=== PATIENT | male | born 1930 | race Caucasian/White ===

== ENCOUNTER → 2017-10-09 | Outpatient (CLI) | payer OTHER ==
[~2017-10-09] MED LIST: ACCUNEB SO1.25 MG/1; ACETAMINOPHEN325 M1 PO; ACIPHEX 20 MG T20 MG PO; ACYCLOVIR 400400 MG; ADVAIR 500-501 EACH INH; ADVAIR HFA 230M12 GM INH; ADVAIRDISKUS INH; ASPIR 8181 MG PO; BETAMETHASONE D50 G3 TOP; CALCIUM 500 +1 EAC5 PO; CALCIUM PO; CENTRUM SILVER1 EAC2 PO; CLEOCIN HCL150 MG PO; CLOBETASOL TOP; COLACE100 MG PO; COREG3.125 MG PO; COZAAR 25 MG TA25 MG PO; DALIRESP500 MCG PO; DEMADEX10 MG PO; DESONIDE CR. 1515 G1 TOP; DESOXIMETASONE15 G1 TOP; DUONEB 2.5-0.5 M3 ML INH; FENTANYL PA25 MCG/HR TRANSDERM; FENTANYL PA50 MCG/HR TRANSDERM; FENTANYL PATCH75 MCG TRANSDERM; FLOMAX0.4 MG PO; FLUOCINONI0.05 %/30 TOP; FOLIC ACID1 MG PO; HYDROCODONE-AP1 EAC6 PO; HYTRIN10 MG PO; IRON325 PO; LIPITOR 20 MG T20 M1 PO; LUMIGAN2.5 M1 OP; MAGOX 400400 MG PO; METHOTREXATE 22.5 MG PO; METHOTREXATE PO; METOPROLOL SUCC25 M1 PO; MIRALAX255 GM PO; NEURONTIN 300300 M1 PO; NORCO 5-325 TA1 EACH PO; OXYCONTIN20 M1 PO; PENICILLIN V P500 MG PO; PERCOCET PO; POTASSIUM20 PO; PRILOSEC40 MG PO; PROTONIX40 M1 PO; SENOKOT-S1 TA2 PO; TOPICORT15 G1 TP; TRIAMCINOLONE A80 G2 TOP; TUMS PO; VITAMIN D1000 UNI1 PO; ZYRTEC10 M2 PO; [UNRECOGNIZED DRUG - REMARK]
== END ==
LOC: RAD 12:55
DX: R06.02 Shortness of breath (principal)

== ENCOUNTER → 2019-03-26 | Outpatient (CLI) | payer OTHER | LOC: ULTRA 08:43 | DX: I12.9 Hypertensive chronic kidney disease with stage 1 through stage 4 chronic kidney disease, or unspecified chronic kidney disease (principal); N28.1 Cyst of kidney, acquired ==

== ENCOUNTER → 2020-03-01 | Outpatient (CLI) | payer OTHER | LOC: RAD 09:27 | PROVIDERS: ATTEND Internal Medicine | DX: J44.9 Chronic obstructive pulmonary disease, unspecified (principal); J98.4 Other disorders of lung; M47.814 Spondylosis without myelopathy or radiculopathy, thoracic region ==

== ENCOUNTER → 2020-03-05 | Outpatient (CLI) | payer OTHER ==
[~2020-03-05] MED LIST changes: +PREDNISONE 10 M10 MG PO; +TYLENOL WITH CO1 TA1 PO
== END ==
LOC: SJCVCIMAG 09:54
PROVIDERS: ATTEND Internal Medicine Cardiovascular Disease
DX: R94.31 Abnormal electrocardiogram [ECG] [EKG] (principal); I08.8 Other rheumatic multiple valve diseases; I11.9 Hypertensive heart disease without heart failure; I45.2 Bifascicular block; I25.10 Atherosclerotic heart disease of native coronary artery without angina pectoris; I25.5 Ischemic cardiomyopathy; E78.00 Pure hypercholesterolemia, unspecified; J44.9 Chronic obstructive pulmonary disease, unspecified; Z95.1 Presence of aortocoronary bypass graft

== ENCOUNTER 2020-03-07 12:03 | Emergency (ER) | payer OTHER ==
[~2020-03-07] VITALS: Ht 180.3 cm; Wt 90.7 kg
[~2020-03-07 12:03] MED LIST changes: -PREDNISONE 10 M10 MG PO; -TYLENOL WITH CO1 TA1 PO
[2020-03-07 13:56] LABS: ABSOLUTE NEUTROPHILS 5.3 thou/uL (1.4-8.2); BASOPHILS 0.7 % (0.0-2.0); EOSINOPHILS 1.1 % (0.0-3.0); HEMOGLOBIN 12.1 gm/dL (14.0-18.0); LYMPHOCYTES 9.4 % (24.0-44.0); MCH 30.6 pg (26.0-34.0); MCHC 33.7 g/dL (28.0-37.0); MONOCYTES 11.4 % (1.0-8.0); PLATELET COUNT 176 thou/uL (150-400); POLYS 77.4 % (36.0-66.0); RBC 3.96 mil/uL (4.50-6.00); RDW 15.1 % (10.5-14.5); WBC 6.8 thou/uL (4.0-11.0)
[2020-03-07] MEDS ORDERED: PREDNISONE 10 M10 MG PO (14:34)
[2020-03-07] MEDS ORDERED: TYLENOL WITH CO1 TA1 PO (14:39)
[2020-03-07 15:10] VITALS: BP 112/51
== END 2020-03-07 15:10 | disposition home or self-care (01) ==
LOC: ER 12:03
PROVIDERS: Physician Assistant
DX: M19.072 Primary osteoarthritis, left ankle and foot (principal); Z95.1 Presence of aortocoronary bypass graft; Z90.49 Acquired absence of other specified parts of digestive tract; Z79.899 Other long term (current) drug therapy; Z79.82 Long term (current) use of aspirin

== ENCOUNTER → 2020-07-01 | Outpatient (CLI) | payer OTHER ==
[~2020-07-01] MED LIST changes: +PREDNISONE 10 M10 MG PO; +TYLENOL WITH CO1 TA1 PO
== END ==
LOC: BC 09:10
PROVIDERS: ATTEND Nurse Practitioner
DX: N64.4 Mastodynia (principal)

== ENCOUNTER → 2021-03-22 | Outpatient (CLI) | payer OTHER | LOC: SJCVCIMAG 07:45 | PROVIDERS: ATTEND Internal Medicine Cardiovascular Disease | DX: I65.23 Occlusion and stenosis of bilateral carotid arteries (principal); I08.8 Other rheumatic multiple valve diseases; I12.9 Hypertensive chronic kidney disease with stage 1 through stage 4 chronic kidney disease, or unspecified chronic kidney disease; N18.9 Chronic kidney disease, unspecified; I25.10 Atherosclerotic heart disease of native coronary artery without angina pectoris; I25.5 Ischemic cardiomyopathy; E78.00 Pure hypercholesterolemia, unspecified; R42 Dizziness and giddiness; G47.33 Obstructive sleep apnea (adult) (pediatric); I27.20 Pulmonary hypertension, unspecified; I42.9 Cardiomyopathy, unspecified; J44.9 Chronic obstructive pulmonary disease, unspecified; Z95.1 Presence of aortocoronary bypass graft; Z90.49 Acquired absence of other specified parts of digestive tract; Z79.82 Long term (current) use of aspirin; Z79.899 Other long term (current) drug therapy; Z87.891 Personal history of nicotine dependence; Z82.49 Family history of ischemic heart disease and other diseases of the circulatory system ==

== ENCOUNTER 2021-06-13 16:18 | Inpatient (IN) | payer OTHER ==
[~2021-06-13] VITALS: Ht 180.3 cm; Wt 83.6 kg
[2021-06-13 16:19] VITALS: BP 93/55
[2021-06-13 18:03] LABS: URINE BILIRUBIN NEGATIVE (Negative); URINE BLOOD TRACE (Negative); URINE CLARITY CLEAR; URINE COLOR YELLOW; URINE GLUCOSE-RANDOM* NEGATIVE (Negative); URINE KETONES NEGATIVE (Negative); URINE LEUKOCYTES-REFLEX NEGATIVE (Negative); URINE NITRITE-REFLEX NEGATIVE (Negative); URINE PROTEIN (DIPSTICK) NEGATIVE (Negative); URINE UROBILINOGEN 0.2 E.U./dl (0.2-1.0)
[2021-06-13 18:13] LABS: ABSOLUTE NEUTROPHILS 3.9 thou/uL (1.4-8.2); BASOPHILS 0.9 % (0.0-2.0); EOSINOPHILS 4.7 % (0.0-3.0); HEMATOCRIT 32.7 % (42.0-52.0); HEMOGLOBIN 10.8 gm/dL (14.0-18.0); LYMPHOCYTES 12.3 % (24.0-44.0); MCH 27.6 pg (26.0-34.0); MCHC 32.9 g/dL (28.0-37.0); MCV 83.9 fL (80.0-100.0); MONOCYTES 11.3 % (1.0-8.0); PLATELET COUNT 238 thou/uL (150-400); POLYS 70.8 % (36.0-66.0); RDW 15.4 % (10.5-14.5); WBC 5.5 thou/uL (4.0-11.0)
[2021-06-13 18:21] LABS: CALCIUM 8.9 mg/dL (8.5-10.1); POTASSIUM 4.2 mmol/L (3.5-5.1)
[2021-06-13 18:33] LABS: ALBUMIN 2.4 g/dL (3.4-5.0); TOTAL BILIRUBIN 0.4 mg/dL (0.2-1.0); TOTAL PROTEIN 7.4 g/dL (6.4-8.2)
[2021-06-13] MEDS ORDERED: COZAAR 25 MG TA25 M1 PO (20:15)
[2021-06-13] MEDS ORDERED: DALIRESP500 MCG PO (20:15)
[2021-06-13 20:38] VITALS: BP 132/56
[2021-06-13 21:22] VITALS: BP 118/55
[2021-06-14 04:14] VITALS: BP 114/52
--- NOTE | 2021-06-14 05:02 | NUR ---
RECEIVED CARE OF THIS PATIENT AT 2103 FROM ED VIA CART ACCOMPANIED BY ED PERSONEL. PATIENT ALERT AND ORIENTED [place], PLACE AND TIME. UNSURE ABOUT REASON FOR BEING HERE. RESTARTED IV IN R HAND. HAS RING PATENT CLEAR YELLOW URINE. DENIES PAIN. SLEPT OFF AND ON DURING NIGHT. HAD 1 EPISODE OF CONFUSION, WAS EASILY REDIRECTED.
--- NOTE | 2021-06-14 07:08 | EKG ---
[address] [employer] 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 : 1930 Requested By: Kendrick Lehman Order Number: [id number] MD: Allen Noguera Measurements Intervals [place] Rate: 79 P: 29 VT: 225 QRS: -79 QRSD: 160 T: 79 QT: 419 QTc: 481 Interpretive Statements Sinus rhythm Multiple ventricular premature complexes Probable left atrial enlargement RBBB Compared to ECG 05/13/2011 06:57:26 Left anterior fascicular block now present Electronically Signed On 06-14-2021 7:08:09 CDT by Allen Noguera [email or web address] <ELECTRONICALLY SIGNED> By: Allen Noguera MD, [facility] [phone] Allen Noguera MD, FAC /EPI
[2021-06-14 11:23] VITALS: BP 112/56
--- NOTE | 2021-06-14 16:29 | NUR ---
INITIAL ASSESSMENT: NANDO reviewed chart and spoke with nursing and attending physician. Pt was admitted from home due to recent hx of falls. Pt with hx of CHF. Cardiology consulted. Pt is on IV abx and IV lasix. NANDO met with pt and son, Porfirio, at bedside. Introduced role of SW. Pt slept during SW visit. Pt is normally alert/orientated. Pt and his live in a 2-level home. 2 steps to enter from the garage. Stairglide up to the second level. Pt has a walker to use. Pt is currently on service with [facility]. Pt has been to [facility] in the past. Pt's PCP is Dr. Trujillo. Therapy evals ordered. Pt's BP being monitored. NANDO discussed post-acute needs: post-acute placement or home with HH. Pt's son states he would be agreeable with [facility] or referral to [facility]. NANDO discussed case with [facility] relay dispatcher who will follow. NANDO updated [facility] liaison. Contact info for NANDO provided to pt's son. NANDO is following to assist as needed with discharge planning.
[2021-06-14 20:14] VITALS: BP 131/83
--- NOTE | 2021-06-15 05:13 | NUR ---
RECEIVED CARE OF THIS PATIENT AT 1900. PATIENT ALERT AND ORIENTED X PERSON AND PLACE TONIGHT. HAS PERIODS OF CONFUSION. EASILY REDIRECTED. RING PATENT. REMAINS ON TELE. HAS SR WITH BBB. DENIES PAIN. SLEPT MOST OF NIGHT.
[2021-06-15 07:36] LABS: ANION GAP < 0 mmol/L (7-16); BUN 35 mg/dL (7-18); CHLORIDE 100 mmol/L (98-107); CO2 38 mmol/L (21-32); CREATININE 2.2 mg/dL (0.7-1.3); GLUCOSE 116 mg/dL (74-106); POTASSIUM 3.1 mmol/L (3.5-5.1); SODIUM 136 mmol/L (136-145)
[2021-06-15 08:05] VITALS: BP 113/60
--- NOTE | 2021-06-15 13:51 | NUR ---
SW reviewed chart and spoke with nursing. PT/OT have evaluated pt. [facility] consult to be ordered today to evaluate pt for admission to acute rehab if appropriate. SW met with pt at bedside. No family present during time of SW visit. Awaiting input from [facility] at this time. SW is following to assist as needed with discharge planning.
--- NOTE | 2021-06-15 14:00 | NUR ---
PT ALERT AND ORIENTED TIMES THREE. VSS, RING TO DD. PT DENIES PAIN/SOA AT THIS TIME. PT TOLERATES MEDS AND MEALS. PT WORKED WELL WITH PT/OT TODAY. PT DAUGHTER AT BEDSIDE. WILL CONTINUE TO MONITOR.
[2021-06-15 16:09] VITALS: BP 101/55
[2021-06-15 19:12] VITALS: BP 100/46
--- NOTE | 2021-06-16 02:57 | NUR ---
PT IS A/O X2 AND IS UP WITH ASSIST X2. ROOM AIR. VSS. AFEBRILE. C/O BACK PAIN. PRN PAIN MEDICATION GIVEN. MEDICATIONS GIVEN PER MAR. NO BM THIS SHIFT. RING IN PLACE DRAINING APPROPRIATELY. SR/BBB ON THE MONITOR. FALL PRECAUTIONS IN PLACE, CALL LIGHT IS WITHIN REACH.
[2021-06-16 04:14] VITALS: BP 105/58
[2021-06-16 07:36] VITALS: BP 111/63
--- NOTE | 2021-06-16 09:35 | 2DMMODE ---
[facility] [place] [facility] [place] [address] 2 D/M-MODE ECHOCARDIOGRAM Name: AVELINODRU Yobany Room #: 436-P [facility] IN M.R.#: [id number] Admission: 06/13/21 Attend Phys: Juan Jose Trujillo MD Discharge: Date of : 32 Report #: [id number] THIS REPORT FOR: cc: Juan Jose Trujillo MD, Neal A. MD [facility] MD [facility] ~ APPROVED REPORT Study performed: 06/14/2021 13:44:57 EXAM: Comprehensive 2D, Doppler, and color-flow Echocardiogram Patient Location: Bedside Room #: 436 Status: routine BSA: 2.02 HR: 83 bpm BP: 112/56 mmHg Rhythm: NSR Other Information Study Quality: Good Indications Congestive Heart Failure COPD Cardiomyopathy 2D Dimensions IVSd: 17.71 (7-11mm) LVOT Diam: 23.26 (18-24mm) LVDd: 61.69 mm PWd: 10.70 (7-11mm) Ascending Ao: 36.62 (22-36mm) LVDs: 52.78 (25-40mm) Left Atrium: 34.48 (27-40mm) Aortic Root: 42.51 mm IVC: 11.00 mm Aortic Valve AoV Peak Sloan.: 1.65 m/s AO Peak Gr.: 10.93 mmHg LVOT Max P.00 mmHg AO Mean Gr.: 7.30 mmHg LVOT Mean P.62 mmHg AO V2 Mean: 1.31 m/s LVOT Max V: 1.00 m/s AO V2 VTI: 30.24 cm LVOT Mean V: 0.56 m/s AMBER (VTI): 2.34 cm2 LVOT V1 VTI: 16.66 cm AMBER Vmax: 2.57 cm2 SV (LVOT): 70.76 mL [facility] [employer] [place] [address] 2 D/M-MODE ECHOCARDIOGRAM Name: DRU YOU Room #: 436-P [facility] IN ..#: [id number] Admission: 06/13/21 Attend Phys: Juan Jose Trujillo, Discharge: Date of : 32 Report #: [id number] Left Ventricle Left ventricle is dilated. Mild concentric left ventricular hypertrophy. Left ventricular ejection fraction is moderately decreased. LVEF is 35%.worse inf base /septum The diastolic function is abnormal. Right Ventricle The right ventricle is normal size. The right ventricular systolic function is normal. Atria Left atrium is dilated. Right atrium is dilated. Aortic Valve The aortic valve is normal in structure. Aortic valve is calcified. Mild aortic regurgitation. There is no aortic valvular stenosis. Mitral Valve The mitral valve is normal in structure. Moderate mitral regurgitation. No evidence of mitral valve stenosis. Tricuspid Valve The tricuspid valve is normal in structure. Trace tricuspid regurgitation. Unable to assess PA pressure. Pulmonic Valve The pulmonary valve is normal in structure. There is no pulmonic valvular regurgitation. Great Vessels The aortic root is normal in size. IVC is normal in size and collapses >50% with inspiration. Pericardium There is no pericardial effusion. <Conclusion> Left ventricle is dilated. Mild concentric left ventricular hypertrophy. LVEF is 35%.worse inf base /septum The diastolic function is abnormal. The right ventricle is normal size. Left atrium is dilated. Right atrium is dilated. [facility] [employer] [place] [address] 2 D/M-MODE ECHOCARDIOGRAM Name: DRU YOU Room #: 436-P [facility] IN ..#: [id number] Admission: 06/13/21 Attend Phys: Juan Jose Trujillo, Discharge: Date of : 32 Report #: [id number] The aortic valve is normal in structure. Aortic valve is calcified. Mild aortic regurgitation. Moderate mitral regurgitation. Trace tricuspid regurgitation. Unable to assess PA pressure. The aortic root is normal in size. There is no pericardial effusion. <ELECTRONICALLY SIGNED> By: Meño Garcia MD, [facility] 06/15/21 [phone] Meño Garcia MD, FACC /INF
[2021-06-16] MEDS ORDERED: NEURONTIN 300M300 M2 PO (09:41)
[2021-06-16] MEDS ORDERED: CEFDINIR300 MG PO (09:41)
--- NOTE | 2021-06-16 10:33 | NUR ---
Assumed care of pt at 0700. Pt alert but forgetful. Denies pain. Marcum catheter in place. Possible d/c to rehab if accepted. Family at bedside. Call light within reach. Fall precautions in place. Will continue to monitor.
[2021-06-16 11:14] LABS: CALCIUM 8.8 mg/dL (8.5-10.1); CREATININE 2.6 mg/dL (0.7-1.3); POTASSIUM 4.2 mmol/L (3.5-5.1)
[2021-06-16 11:45] VITALS: BP 98/49
--- NOTE | 2021-06-16 11:46 | NUR ---
DISCHARGE NOTE: NANDO reviewed chart and spoke with nursing and attending physician. Pt is medically stable for discharge today. SW discussed case with [facility] rehabilitation services director, who states they are able to accept pt today. SW Updated physician. Discharge orders completed. NANDO met with pt and son at bedside to discuss discharge plan. Pt and son are aware and in agreement with discharge. Pt to move to [facility] later today. NANDO updated [facility] rehabilitation services director. Rehab CM to follow and assist as needed with discharge planning.
== END 2021-06-16 15:48 | DRG 177 ==
LOC: ER 16:18 → EROBS 19:27 → 4S 19:27
PROVIDERS: Emergency Medicine; Nurse Practitioner Adult Health; ADMIT Family Medicine; ATTEND Family Medicine
PROC: 5A09357 Assistance with Respiratory Ventilation, Less than 24 Consecutive Hours, Continuous Positive Airway Pressure (ICD-10-PCS; principal; 2021-06-14)
PROC: 5A09357 Assistance with Respiratory Ventilation, Less than 24 Consecutive Hours, Continuous Positive Airway Pressure (ICD-10-PCS; 2021-06-15)
DX: J15.29 Pneumonia due to other staphylococcus (principal); J96.01 Acute respiratory failure with hypoxia; I50.43 Acute on chronic combined systolic (congestive) and diastolic (congestive) heart failure; E43 Unspecified severe protein-calorie malnutrition; J44.0 Chronic obstructive pulmonary disease with (acute) lower respiratory infection; I13.0 Hypertensive heart and chronic kidney disease with heart failure and stage 1 through stage 4 chronic kidney disease, or unspecified chronic kidney disease; I25.5 Ischemic cardiomyopathy; N18.9 Chronic kidney disease, unspecified; R29.6 Repeated falls; G89.29 Other chronic pain; Z20.822 Contact with and (suspected) exposure to COVID-19; M54.9 Dorsalgia, unspecified; R62.7 Adult failure to thrive; E78.5 Hyperlipidemia, unspecified; G47.33 Obstructive sleep apnea (adult) (pediatric); I25.10 Atherosclerotic heart disease of native coronary artery without angina pectoris; R26.89 Other abnormalities of gait and mobility; R53.81 Other malaise; I27.20 Pulmonary hypertension, unspecified; Z68.25 Body mass index [BMI] 25.0-25.9, adult; Z95.1 Presence of aortocoronary bypass graft; Z90.49 Acquired absence of other specified parts of digestive tract; Z87.81 Personal history of (healed) traumatic fracture; Z87.891 Personal history of nicotine dependence; Z79.82 Long term (current) use of aspirin; Z79.899 Other long term (current) drug therapy; Z86.73 Personal history of transient ischemic attack (TIA), and cerebral infarction without residual deficits; Z28.21 Immunization not carried out because of patient refusal; Z23 Encounter for immunization
CPT/HCPCS: 10100

== ENCOUNTER 2021-06-16 11:51 | Inpatient (IN) | payer OTHER ==
[~2021-06-16] VITALS: Ht 180.3 cm; Wt 90.7 kg
[~2021-06-16 11:51] MED LIST changes: +CEFDINIR300 MG PO; +COZAAR 25 MG TA25 M1 PO; -DEMADEX10 MG PO; +DEMADEX20 MG PO; +NEURONTIN 300M300 M2 PO
[2021-06-16 16:38] VITALS: BP 122/59
[2021-06-16 19:56] VITALS: BP 109/55
--- NOTE | 2021-06-16 20:20 | NUR ---
ASSUMED CARE TO PT UPON ARRIVAL TO THE UNIT, VSS, COOPERATIVE, CALM, RA COMFORTABLE , NO PAIN. ALL SAFETY PRECAUTION IN PLACE, EDUCATION PROVIDED. PT DIDN'T MOVE IN BED. RING PATENT. NO CONCERNS VOICED. POC TO BE INITIATED AND CONT'D.
--- NOTE | 2021-06-17 03:02 | NUR ---
PATIENT CARE WAS RESUMED AT 1900. HE IS ALERT AND ORIENTED X 3 WITH SOME FORGETFUL. ABLE TO VERBALIZE NE. CALL LIGHT AT REACH AND BS ACTIVE X4 QUADS.HE HAS A RING. EDEMA IS NOTED TO HIS BILATERL LOWER EXREMETEY. HE IS CONTINENT OF BOWEL AND BLADDER. CALL IGHT AT REACH AND LUNGS ARE CLEAR ON AUSCULTATION.PATIENT HAD A ST SCAN OF THE HEAD THIS SHIFT. .
[2021-06-17 07:02] LABS: HEMATOCRIT 29.8 % (42.0-52.0); MCH 27.9 pg (26.0-34.0); MCHC 33.4 g/dL (28.0-37.0); MCV 83.6 fL (80.0-100.0); RBC 3.56 mil/uL (4.50-6.00); RDW 15.6 % (10.5-14.5); WBC 6.1 thou/uL (4.0-11.0)
[2021-06-17 07:13] LABS: CALCIUM 8.8 mg/dL (8.5-10.1); CREATININE 2.4 mg/dL (0.7-1.3); POTASSIUM 4.4 mmol/L (3.5-5.1)
[2021-06-17 08:00] VITALS: BP 104/51
--- NOTE | 2021-06-17 11:54 | NUR ---
Met with patient. Patient admits to acute rehab gait instability and CHF. Patient resides at home with . Stairglide at home to second floor. resides in home she does not drive. Patient has walker at home which he uses in home and in community. Patient on service [facility] care. patient reports Dr Trujillo ordered to see him at home. Updated [facility] with clinical faxed. PCP Dr Trujillo. Patient with 3 children ,Porfirio, Jennifer and Natasha. Natasha lives in [place]. Sp with Porfirio updated on team conference. [facility] following for dc planning.
--- NOTE | 2021-06-17 12:21 | NUR ---
Assumed care to Pt at shift change , A/O x 3, had breakfast and lunch on siting on the chair, Up w/ 2 assists, RA, fair appetite, no complaint of pain, VSS with soft BP(104/51), mood stable, comfortable and safe. No new concerns. POC to be cont'd.
--- NOTE | 2021-06-17 13:08 | NUR ---
Consulted r/t pt diet instruction. Pt admitted for acute exacerbation CHF. General debility, gait instability with falls. PMH: CAD s/p CABG, COPD, CHF, kyphplasty. Noted with some edma. No weight changes reported. On 2 gmNA diet with fair intakes. Ensure in place at lunch. Pt sleeping after lunch at time RD attempted visit. Will follow up r/t need for nutrition eudcation/diet instruction. Low nutrition risk with supplement in place.
[2021-06-17 19:51] VITALS: BP 114/59
[2021-06-17 21:07] LABS: FOLIC ACID 5.6 ng/mL (8.6-58.9)
--- NOTE | 2021-06-18 02:19 | NUR ---
Pt is alert/oriented with some forgetfulness and impulsivity. Pt is max assist x 1-2, does good with standing and pivoting, morales patent to dependent drainage, clear yellow urine. HRR, Lung sounds clear, BS + x 4 Q, abd soft non tender. will continue to monitor.
[2021-06-18 08:00] VITALS: BP 124/58
--- NOTE | 2021-06-18 12:55 | NUR ---
PATIENT ALERT AND ORIENTED X3, CALM AND PLEASANT WITH CARE, PATIENT SITTING ON THE WHEEL/CHAIR WHEN CARE ASSUMED AT 0700, TOOK MEDICATION, PATIENT HAS A RING ON, S/L ON LEFT ARM, ACTIVE BOWEL SOUND WITH SOFT AND ROUNDED ABDOMEN, BREATH OUND CLEAR, PATIENT ABLE TO VERBALIZE NEED. WILL CONTINUE TO MONITOR.
[2021-06-18 22:00] VITALS: BP 135/49
--- NOTE | 2021-06-19 05:33 | NUR ---
PT AMBULATING TO BATHROOM WITH ASSIST AND IS TOLERATING FAIR. DENIES PAIN. RESTING COMFORTABLY. NO NEEDS VOICED. CALL LIGHT WITHIN REACH. FREQUENT OBSERVATION.
[2021-06-19 07:15] VITALS: BP 136/74
[2021-06-19 12:17] VITALS: BP 115/50
--- NOTE | 2021-06-19 17:19 | NUR ---
PT ALERT TO SELF, SOMETIMES PLACE. PT IS IMPULSIVE. PT DOES NOT USE CALL LIGHT APPROPRIATELY. BED ALARM ON. WILL CONTNIUE TO MONITOR.
[2021-06-19 19:30] VITALS: BP 123/55
[2021-06-20 05:35] LABS: PHOSPHORUS 3.6 mg/dL (2.5-4.9); POTASSIUM 4.5 mmol/L (3.5-5.1)
[2021-06-20 12:29] LABS: HEMATOCRIT 29.1 % (42.0-52.0); HEMOGLOBIN 9.4 gm/dL (14.0-18.0); MCH 27.3 pg (26.0-34.0); MCHC 32.4 g/dL (28.0-37.0); MCV 84.5 fL (80.0-100.0); RBC 3.45 mil/uL (4.50-6.00); RDW 15.5 % (10.5-14.5); WBC 5.4 thou/uL (4.0-11.0)
--- NOTE | 2021-06-20 19:25 | NUR ---
PT HAD TROUBLE SWALLOWING TODAY. PT IS NOW ON NECTAR THICK LIQUIDS, MECH. CHOPPED FOOD. PY TO TAKE SMALL BTES, SWALLOW AND NOT PUT ANOTHER BITE IN UNTIL MOUTH IS EMPTY. SUPERVISION WITH ALL INTAKE
[2021-06-20 19:30] VITALS: BP 130/59
--- NOTE | 2021-06-20 19:47 | NUR ---
ASSUMED CARE OF PT AT 1925. PT IS SLEEPING. IS AROUSABLE. IS STABLE. ON ROOM AIR. DENIES PAIN AT THIS TIME. LABS REVIEWED. NO EDEMA NOTED IN BILAT LE. PT IS ABLE TO TURN SELF IN BED. WAS REPORTED IMPULSIVE & A&O NAME & SOMETIMES SELF. BED ALARM ON. FREQUENT CHECKS. IS UP WITH 1 ASSIST, GB, & WALKER. FALL PRECUATIONS & HOURLY ROUNDING CONTINUED THIS SHIFT. THIS NURSE ASKED & OFFERED TO REMOVED CLOTHES & PUT ON GOWN OR PERSONAL PJS. PT REFUSED. EDUCATION PROVIDED. PT IS CURRENTLY SLEEPING. CALL LIGHT WITHIN REACH. LABS REVIEWED. WILL CONTINUE TO MONITOR.
[2021-06-21 08:00] VITALS: BP 125/58
--- NOTE | 2021-06-21 11:04 | NUR ---
UP AT BEDSIDE WITH SBA X1 THIS AM-COOPERATIVE AND FOLLOWS VERBAL COMMANDS WITHOUT DIFFICULTY MTO COMPLETE TRANSFER AND AM CARES. IS NOTED TO BE WINCING-GACIAL GRIMACING WHEN SITTING DOWN IN CHAIR-REQUESTING EXTRA PADS TO WC WITH REPORTED "BOTTOM" AND SCROTUM PAIN. SCROTUM IS NOTED TO BE SWOLLEN-NORCO 5/325PO PRN AT 0830 FOR SCROTAL PAIN-REPOSITIONED IN GERICHAIR WITH LEGS ELEVATED WITH VERBALIZED IMPROVEMENT IN PAIN AFTER ABOVE NOTED INTERVENTIONS. JHONATHAN GILLIS DC'D AT 1030 PER ORDER. SWALLOW CAMRON COMPLETED THIS AM AND CONTINUES ON [facility] CHOPPED SOFT DIET WITH THIN LIQUIDS. APPETITE GOOD-ATE 100 PERCENT OF BREAKFAST THIS AM. CONTINUES ON FALLS PRECAUTIONS WITH CHAIR ALARM ON. ORIENTED TO PERSON,PLACE-NPO TO DATE.
--- NOTE | 2021-06-21 13:39 | NUR ---
team meeting, recommendation: mod assist with transfers. Daily wt for chf. fww 80ft with min assist. moderate to severe memory. mech soft, thin liquid. needs assist with mediation and finances BPCI. Dc 06/30 [facility] ( pt, ot, st, nursing and sw). low air loss mattress r/t scrotal swelling. no driving till cleared by
--- NOTE | 2021-06-21 15:15 | NUR ---
INCONTINENT OF LARGE AMOUNT URINE IN BRIEF-STATES DID NOT HAVE SENSATION THAT HE NEEDED TO GO PRIOR TO VOID.
--- NOTE | 2021-06-21 16:43 | NUR ---
Has had voids x2 since 1045 dc of morales cathetor-1st void was incontinent of large amount urine at approx 1300-bladder scan completed post void showed 70 cc in bladder-2nd void was in toilet approx 150cc clear yellow urine at approx 1530-bladder scaN completed post void showed less than 50cc urine remaining in bladder-no noted distension upon visual assessment.
[2021-06-21 19:50] VITALS: BP 124/55
--- NOTE | 2021-06-22 02:06 | NUR ---
ASSUMED CARE AT 1900 OF 06/21. PATIENT IS A&OX2-3, FORGETFUL AT TIMES. REQUIRES REMINDER TO USE CALL LIGHT, HAS BEEN IMPULSIVE ONCE DURING THIS SHIFT. STAND BY ASSIST, USING GB AND WALKER, TO TRANSFER AND AMBULATE TO TOILET TO VOID CLEAR YELLOW URINE. AROUND 2300 PATIENT VOIDED INTO TOILET, BLADDER SCANNED, PVR NOTED <40CC. CPAP ON WHILE SLEEPING, APPEARS TO BE SLEEPING ON HOURLY ROUNDS. FALL PRECAUTIONS IN PLACE, CALL LIGHT WITHIN REACH. WILL CONTINUE TO MONITOR.
[2021-06-22 08:00] VITALS: BP 128/62
--- NOTE | 2021-06-22 13:25 | NUR ---
PATIENT HAS BEEN UP, IN [facility], THERAPISTS WORKING WITH HIM. PATIENT TOOK ALL MEDICATION WHOLE IN APPLE SOURCE WITHOUT DIFFICULTY. APPETITE GOOD, PATIENT CONSUMES 100% MEALS. PATIENT TRANSFERS WITH STAND-BY ASSIST, AND GAIT BELT. PATIENT STATES HE IS VOIDING IN THE BATHROOM WITHOUT DIFFICULTY. LUNGS WITH DIMINISHED SOUND PER AUSCULTATION IN ALL LOBE. BS+X4, ABD SOFT, NON-TENDER TO TOUCH. PATIENT STATES HE IS REALLY TIRED TODAY, TAKING OFF/ON NAPS. NO CONCERN VOICED AT THIS TIME. PATIENT CURRENTLY SITTING IN [facility] IN ROOM, REMINDED TO REPOSITION NEEDED, CALL LIGHT IN REACH, WILL MONITOR FOR SAFETY.
--- NOTE | 2021-06-22 17:03 | NUR ---
Team conf update provided to pt's son Porfirio via phone. Anticipated dc date is 06/30 with resumption of hh per [facility]. Will reteam on Thursday 06/28. Porfirio is in agreement with the dc plan and he has discussed with the pt as well this afternoon.
[2021-06-22 19:27] VITALS: BP 101/65
--- NOTE | 2021-06-23 05:16 | NUR ---
ASSUMED CARE AT 1915 OF 06/22. PATIENT IS A&OX2-3, CAN BE FORGETFUL. DENIES PAIN OR SHORTNESS OF BREATH. STAND BY ASSIST WITH TRANSFERS AND AMBUALTION TO BATHROOM TO VOID YELLOW URINE, USING GB AND WALKER. TOLERATED ALL ORAL MEDICATIONS WHOLE ONE AT A TIME WITH APPLE SAUCE. MIN TO MODERATE ASSIST WITH LOWER BODY DRESSING. PATIENT WAS INCONTINENT OF BLADDER ONCE DURING THE NIGHT. NO IMPULSIVITY NOTED, AND HAS BEEN USING CALL LIGHT APPROPRIATELLY. FALL PRECAUTIONS ARE IN PLACE, CALL LIGHT WITHIN REACH. WILL CONTINUE TO MONITOR.
[2021-06-23 07:15] VITALS: BP 116/61
--- NOTE | 2021-06-23 10:51 | NUR ---
ASSUMED CARE AT 0700. PATIENT IS ALERT AND ORIENTED X4. HAS SOME CONFUSION AT NOC. LUNGS ARE CLEAR AND DEMINISHED. PATIENT CONTINUES ON RESPIRATORY TX. NO 02 AT THIS TIME. ABD IS SOFT WITH BSX4. SCROTUM IS SWOLLEN. UP TO THE BATHROOM WITH ASSIST OF 1 STAFF , GAIT BELT, AND WALKER TO VOID GLEN COLORED URINE.\ FALL AND SAFETY PROTOCOLS IN PLACE. DENIES PAIN AT THIS TIME. CONTINUES TO PROGRESS SLOWLY TOWARDS D/C GOALS. WILL CONTINUE TO MONITER.
[2021-06-23 19:53] VITALS: BP 106/49
--- NOTE | 2021-06-24 02:19 | NUR ---
assumed care approx 1900 evening 06/23. pt sitting up in recliner in room resting and daughter at bedside. pt tired and somewhat lethargic. pt up to bathroom multiple times in evening before falling asleep. pt wearing cpap machine and pulse oximeter in place with sats 92% and greater. pt appears to be sleeping soundly. bed alarm on and call light in reach. will continue to monitor.
[2021-06-24 06:00] VITALS: BP 124/40
[2021-06-24 06:21] LABS: ABSOLUTE NEUTROPHILS 2.6 thou/uL (1.4-8.2); BASOPHILS 1.1 % (0.0-2.0); EOSINOPHILS 7.8 % (0.0-3.0); HEMATOCRIT 28.5 % (42.0-52.0); HEMOGLOBIN 9.3 gm/dL (14.0-18.0); LYMPHOCYTES 23.3 % (24.0-44.0); MCH 27.7 pg (26.0-34.0); MCHC 32.6 g/dL (28.0-37.0); MCV 84.9 fL (80.0-100.0); MONOCYTES 9.5 % (1.0-8.0); PLATELET COUNT 232 thou/uL (150-400); POLYS 58.3 % (36.0-66.0); RBC 3.36 mil/uL (4.50-6.00); WBC 4.5 thou/uL (4.0-11.0)
[2021-06-24 06:46] LABS: CALCIUM 8.8 mg/dL (8.5-10.1); CREATININE 2.1 mg/dL (0.7-1.3); MAGNESIUM 2.2 mg/dL (1.8-2.4); POTASSIUM 4.1 mmol/L (3.5-5.1)
[2021-06-24 07:15] VITALS: BP 120/45
--- NOTE | 2021-06-24 13:05 | NUR ---
Nutrition followup: pt continues on rehab unit with CHF dx. Stable weights Eating well, 100% most meals. [facility]. Will add 2 gm Na restriction back into diet order. RD discussed diet briefly with pt and provided written materials. He was very sleepy during visit but acknowledged them. Keep as low nutrition risk.
--- NOTE | 2021-06-24 13:40 | PLAN ---
[facility] [place] [address] REHAB UNIT PLAN OF CARE Name: DRU YOU Room #: 515-P ADM IN M.R.#: [id number] Admission: 06/16/21 Attend Phys: Arron Han MD Discharge: Date of : 32 Report #: [id number] THIS REPORT FOR: cc: Juan Jose Trujillo MD, Neal A. MD [place],Arron Mccallum MD ~ PROGRESS NOTE/OVERALL PLAN OF CARE HISTORY OF PRESENT ILLNESS: The patient was seen back earlier. His temperature today is 36.7, pulse 83, respirations 20, blood pressure 136/74. He needs assist with nursing, getting up to ambulate to the bathroom. I discussed with him further, he desired for rest breaks during therapy and these were ordered. He is on room air. He has overall generalized debilitation. He may have some fine tremor noted in his hands, right greater than left. Functionally, he has been working in therapies with bed mobility min assist, transfers min assist, gait min assist 50 feet with a front-wheeled walker. In occupational therapy, upper body dressing is supervision, lower body dressing is moderate assistance. He has mild comprehensive deficits, moderate to severe cognitive deficits and severe memory deficits. ASSESSMENT: 1. Gait instability with falls. 2. Medical complexity with generalized debilitation. 3. Acute exacerbation of congestive heart failure. 4. Atypical pneumonia. 5. History of lacunar infarct. 6. Dizziness, orthostatic. 7. Hypertension. 8. Coronary artery disease with history of coronary artery bypass grafting. 9. Constipation. PLAN: The overall plan of care is based on the pre-admit screen and information garnered from therapy assessments. 1. Estimated length of stay is probably around 14 days. 2. Medical prognosis is reasonably good. 3. Anticipated interventions includes the interdisciplinary acute inpatient rehabilitation program. 4. Anticipated functional outcomes would be for the patient to improve as far as strength, endurance, and mobility to try to hopefully gain independence so that he can return back home. 5. Discharge destination would be back home with his . 6. Expected therapy by discipline includes PT, OT and speech 1 hour per day each 5 days a week throughout the duration of the acute inpatient rehabilitation stay. [address] [address] REHAB UNIT PLAN OF CARE Name: DRU YOU Room #: 515-P [facility] IN ..#: [id number] Admission: 06/16/21 Attend Phys: Arron Han MD Discharge: Date of : 32 Report #: [id number] The patient's prognosis for significant practical improvement within a reasonable period of time appears good. Given the patient's complex medical condition and risk of further medical complications, rehabilitaion services could not be safely provided at the lower level of care such as a alf facility. <ELECTRONICALLY SIGNED> By: Arron Han MD 06/24/21 1340 [id number] Arron Han MD /fito
[2021-06-24 19:58] VITALS: BP 121/58
[2021-06-24 19:58] LABS: URINE BILIRUBIN NEGATIVE (Negative); URINE BLOOD NEGATIVE (Negative); URINE CLARITY CLEAR; URINE COLOR YELLOW; URINE GLUCOSE-RANDOM* NEGATIVE (Negative); URINE KETONES NEGATIVE (Negative); URINE LEUKOCYTES-REFLEX NEGATIVE (Negative); URINE NITRITE-REFLEX NEGATIVE (Negative); URINE PROTEIN (DIPSTICK) 1+ (Negative); URINE UROBILINOGEN 0.2 E.U./dl (0.2-1.0)
[2021-06-24 20:36] LABS: BACTERIA-REFLEX 1-9 Few /HPF (None Seen); CASTS None Seen /LPF (None Seen); CRYSTALS None Seen /LPF (None Seen); SQUAMOUS 0-3 Few /LPF (0-3); URINE RBC None Seen /HPF (NONE SEEN); URINE WBC-REFLEX 0-5 Rare /HPF (0-5)
--- NOTE | 2021-06-25 02:04 | NUR ---
assumed care approx 1900 evening 06/24. pt sitting up in recliner very impulsive before falling asleep. pt with urgency and frequency of urine. ua sent to lab. pt reminded to use call light and not get up on his own. chair and bed alarms in use. pt took hs meds with applesauce tolerating well. cpap monitor on with continuous pulse oximeter in place. pt appears to be sleeping soundly. bed alarm on and call light in reach. will continue to monitor.
[2021-06-25 05:20] VITALS: BP 134/63
[2021-06-25 08:00] VITALS: BP 108/45
--- NOTE | 2021-06-25 08:04 | NUR ---
ASSUMED CARE AT 0700. PATIENT IS ALERT AND ORIENTED, BUT FORGETFUL AT TIMES. PATIENT IS IMPULSIVE AT TIMES. PATIENT ARTEAGA'S, FRETTED STRING INSTRUMENT REPAIRER ARE EQUAL. PATIENT IS UP WITH GAIT BELT AND WALKER TO THE BATHROOM TO VOID AND HAVE BM. FALL AND SAFETY PROTOCOLS IN PLACE. DENIES PAIN AT THIS TIME. CONTINUES TO PROGRESS SLOWLY TOWARDS D/C GOALS. WILL CONTINUE TO MONITER.
[2021-06-25 19:14] VITALS: BP 123/62
--- NOTE | 2021-06-26 02:03 | NUR ---
Assumed pt care at 1900. A/OX4 with some confusion noted at night,easily redirected.Denies pain on assessment. Up with AX1,RW/GB to the bathroom w/o any problems.Abdominal binder in place when up,BLE wrapped in acewrap. Continet of B&B this shift. Pt wore the CPAP for sometime and requested to have it off,RT aware. Fall precautions in place,reminded to call as needed.
[2021-06-26 10:22] VITALS: BP 125/59
--- NOTE | 2021-06-26 15:26 | NUR ---
Assumed care for Pt at shift change, pt looked comfortable, slept well, A/O with some forgetfulness good appetite, I/O's satisfactory, VSS, takes meds whole with apple sauce. no c/o pain, up with 1A , GB , FWW. Labs reviewed, no new concerns. Cont POC.
[2021-06-26 20:30] VITALS: BP 108/41
--- NOTE | 2021-06-27 04:39 | NUR ---
ASSUMED CARE OF PT AT 1915 ON 06/26/21. PT IS A&OX3. IS FORGETFUL & IMPULSIVE AT TIMES. IS STABLE. IS ON ROOM AIR. IS STABLE. DENIES PAIN. IS ABLE TO TURN SELF IN BED. CONTINUES WITH BILAT LE EDEMA. WRAPS INTACT. SCROTAL EDEMA NOTED. IS UP WITH 1 ASSIST, RED GB, FRONT WHEEL WALKER. FALL PRECAUTIONS & HOURLY ROUNDING CONTINUEED THIS SHIFT. LABS & VITALS REVIEWED. PT REFUSED MIRALAX & STOOL SOFTNER. PT STATED, "I HAVE HAD 2 BOWEL MOVEMENTS TODAY. I DON'T NEED THOSE". PT IS CURRENTLY WATCHING TV. CALL LIGHT WITHIN REACH. BED ALARM ON. WILL CONTINUE TO MONITOR.
[2021-06-27 08:16] VITALS: BP 113/60
--- NOTE | 2021-06-27 12:19 | NUR ---
ASSUMED PT CARE AT SHIFT CHANGE, PT A/O X 4 WITH SOME FORGETFULLNESS, LOOKED TIRED, C/O OF NOT SLEEPING ENOUGH OVER NIGHT, ASSESSMENT PERFORMED AT BED SIDE, VSS, AFEBRILE, PT LOOKS COMFORTABLE; ALL SAFETY PRECAUTIONS MAINTAINED, WAS ABLE TO MOVE TO THE RESTROOM USING FWW, GB SBA, HAD A NORMAL BM THIS MORNING , SATISFACTORY I&O'S, ADEQUATE MOOD EXPRESSION, ALL MEDS GIVEN PER SCHEDULE, TAKES PILLS WHOLE WITH APPLE SAUCE, LABDS REVIEWED, NO NEW CONCERNS NOTED.
[2021-06-27 19:49] VITALS: BP 135/62
--- NOTE | 2021-06-28 01:30 | NUR ---
Assumed care on 06/27/21 @ 1900, seated @ bedside in the chair A&Ox3 Oxygen sats 95% on Room air, denies pain. VSS Tylenol 650 provided for 02/03 pain @ 23:10 and on follow up is noted to be sleeping. Continent of B&B. Fall precautions in place, chair alarm and bed alarm utilized for safety. call light in place, bed alarm set. Cpap set up by RT @ HS.
--- NOTE | 2021-06-28 08:09 | NUR ---
PT SITTING UP IN CHAIR THIS AM. PT TOOK MEDS WITH NO ISSUES WHOLE WITH ORANGE JUICE. PT HAS CRACKLE TO RLL AND LLL. PT HAS NON-PRODUCTIVE COUGH. PT HAS EDEMA TO SCROTUM. PT DOES NOT CALL FOR ASSISTANCE WHEN GETTING UP. PT HAS CHAIR ALARM ON FOR SAFETY. PT USES WALKER WITH ENCOURAGEMENT.
[2021-06-28 08:13] VITALS: BP 114/56
--- NOTE | 2021-06-28 13:45 | NUR ---
team meeting, recommendation: increased confusion last night, up alarm going off, taking off cpap. mod to severe memory and cognition. Needs assist with medication and finances. diet mech soft with thin liquids. poor insight . 24hr supervision. unable to care for his till cleared md. No driving till cleared by md. [facility]PCI [facility] ( pt, ot, st, nursing, sw ) vs other dcp option.
[2021-06-28 19:55] VITALS: BP 128/59
--- NOTE | 2021-06-29 01:51 | NUR ---
Assumed care on 06/28/21 @ 1900, seated in a chair in his room with chair alarm in place. Gets up impulsively without calling for assistance. Toileted with urine output. VSS takes meds whole in applesauce and thin water. PRN Tylenol provided for pain in his scrotum. A&Ox3 with confusion noted. Retired to bed @ and has been resting in bed with eyes closed, respirations even and unlabored. Bed alarm set, will continue to monitor for safety and comfort as per unit protocol.
[2021-06-29 07:46] LABS: ABSOLUTE NEUTROPHILS 3.5 thou/uL (1.4-8.2); BASOPHILS 0.7 % (0.0-2.0); EOSINOPHILS 6.5 % (0.0-3.0); HEMATOCRIT 30.3 % (42.0-52.0); HEMOGLOBIN 9.6 gm/dL (14.0-18.0); LYMPHOCYTES 22.8 % (24.0-44.0); MCH 27.4 pg (26.0-34.0); MCHC 31.8 g/dL (28.0-37.0); MCV 86.2 fL (80.0-100.0); MONOCYTES 6.7 % (1.0-8.0); PLATELET COUNT 260 thou/uL (150-400); POLYS 63.3 % (36.0-66.0); RBC 3.52 mil/uL (4.50-6.00); RDW 16.8 % (10.5-14.5); WBC 5.5 thou/uL (4.0-11.0)
[2021-06-29 08:00] VITALS: BP 118/58
[2021-06-29 08:00] LABS: CALCIUM 8.9 mg/dL (8.5-10.1); CREATININE 2.1 mg/dL (0.7-1.3); POTASSIUM 4.1 mmol/L (3.5-5.1)
--- NOTE | 2021-06-29 14:18 | NUR ---
sent private duty list to his daughter and sent updates to [facility]. [facility]
[2021-06-29 14:40] VITALS: BP 118/58
--- NOTE | 2021-06-29 15:01 | NUR ---
PT ALERT AND ORIENTED TIMES FOUR WITH PERIODS OF CONFUSION ALSO SOMEWHAT BLUNTED AFFECT. VSS. PT DENIES PAIN/SOA. PT TOLERATES MEDS AND MEALS. PT ALSO WORKED WELL WITH PT/OT THIS SHIFT. PT PROGRESSING TOWRADS POC GOALS.
[2021-06-29] MEDS ORDERED: MIDODRINE HCL 55 M1 PO (16:45)
[2021-06-29] MEDS ORDERED: IPRAT-ALBUT 0.5-3 ML INH (16:45)
[2021-06-29] MEDS ORDERED: NEURONTIN 300M300 M2 PO ×2 (16:45)
[2021-06-29] MEDS ORDERED: TYLENOL325 MG PO (16:45)
[2021-06-29] MEDS ORDERED: FOLIC ACID1 MG PO (16:45)
[2021-06-29] MEDS ORDERED: DUPIXENT300 MG/2 M SUBQ (16:46)
[2021-06-29] MEDS ORDERED: TAMSULOSIN HCL0.4 MG PO (16:46)
[2021-06-29 20:19] VITALS: BP 122/53
--- NOTE | 2021-06-30 00:24 | NUR ---
PT ALERT AND ORIENTED X 4, CONFUSED AT TIMES. AMB TO BR WITH WALKER AND ASSIST X1 WITHOUT DIFFICULTY. RED GAIT BELT. PT TAKES MEDS WITH APPLESAUCE WITHOUT DIFFICULTY. PT DENIES PAIN OR DISCOMFORT. BED ALARM ON FOR SAFETY. PT APPEARS TO BE SLEEPING ON HOURLY ROUNDS. HAS NOT BEEN IMPULSIVE SO FAR TONIGHT. USED CALL LIGHT IN EVENING WHEN NEEDING TO GO TO THE BATHROOM.
[2021-06-30 08:00] VITALS: BP 111/53
[2021-06-30] MEDS ORDERED: NEURONTIN 300M300 M2 PO (12:47)
[2021-06-30] MEDS ORDERED: IPRAT-ALBUT 0.5-3 ML INH (12:47)
[2021-06-30] MEDS ORDERED: MIDODRINE HCL 55 M1 PO (12:47)
[2021-06-30] MEDS ORDERED: FOLIC ACID1 MG PO (12:47)
--- NOTE | 2021-06-30 15:38 | NUR ---
PT AND SON STATE UNDERSTANDING OF FOLLOW UP APPOINTMENTS. WILL CONTINUE TO MONITOR.
== END 2021-06-30 14:12 | disposition home health service (06) | DRG 91 ==
PROVIDERS: Hospitalist; Nurse Practitioner; Nurse Practitioner Family; ADMIT Physical Medicine & Rehabilitation; ATTEND Physical Medicine & Rehabilitation
PROC: 5A09557 Assistance with Respiratory Ventilation, Greater than 96 Consecutive Hours, Continuous Positive Airway Pressure (ICD-10-PCS; principal; 2021-06-16)
DX: R26.89 Other abnormalities of gait and mobility (principal); I50.41 Acute combined systolic (congestive) and diastolic (congestive) heart failure; J18.9 Pneumonia, unspecified organism; N17.9 Acute kidney failure, unspecified; I13.0 Hypertensive heart and chronic kidney disease with heart failure and stage 1 through stage 4 chronic kidney disease, or unspecified chronic kidney disease; J44.0 Chronic obstructive pulmonary disease with (acute) lower respiratory infection; R53.81 Other malaise; I25.10 Atherosclerotic heart disease of native coronary artery without angina pectoris; K59.00 Constipation, unspecified; I25.5 Ischemic cardiomyopathy; E78.5 Hyperlipidemia, unspecified; N18.9 Chronic kidney disease, unspecified; I95.1 Orthostatic hypotension; D64.9 Anemia, unspecified; G62.9 Polyneuropathy, unspecified; E86.0 Dehydration; R13.19 Other dysphagia; F01.50 Vascular dementia, unspecified severity, without behavioral disturbance, psychotic disturbance, mood disturbance, and anxiety; Z95.1 Presence of aortocoronary bypass graft; Z87.891 Personal history of nicotine dependence; Z86.73 Personal history of transient ischemic attack (TIA), and cerebral infarction without residual deficits; Z79.82 Long term (current) use of aspirin; Z79.899 Other long term (current) drug therapy
CPT/HCPCS: 10112

== ENCOUNTER → 2021-08-09 | Outpatient (CLI) | payer OTHER ==
[~2021-08-09] MED LIST changes: +DUPIXENT300 MG/2 M SUBQ; +IPRAT-ALBUT 0.5-3 ML INH; +MIDODRINE HCL 55 M1 PO; +TAMSULOSIN HCL0.4 MG PO; +TYLENOL325 MG PO
== END ==
LOC: SJCVC 11:30
PROVIDERS: ATTEND Internal Medicine Cardiovascular Disease
DX: I45.19 Other right bundle-branch block (principal); R94.31 Abnormal electrocardiogram [ECG] [EKG]; I25.10 Atherosclerotic heart disease of native coronary artery without angina pectoris; I65.23 Occlusion and stenosis of bilateral carotid arteries; E78.00 Pure hypercholesterolemia, unspecified; I25.5 Ischemic cardiomyopathy; I34.0 Nonrheumatic mitral (valve) insufficiency; I13.0 Hypertensive heart and chronic kidney disease with heart failure and stage 1 through stage 4 chronic kidney disease, or unspecified chronic kidney disease; I50.9 Heart failure, unspecified; N18.9 Chronic kidney disease, unspecified; G47.33 Obstructive sleep apnea (adult) (pediatric); J44.9 Chronic obstructive pulmonary disease, unspecified; I27.20 Pulmonary hypertension, unspecified; F17.210 Nicotine dependence, cigarettes, uncomplicated; Z82.49 Family history of ischemic heart disease and other diseases of the circulatory system; Z95.1 Presence of aortocoronary bypass graft; Z79.82 Long term (current) use of aspirin; Z79.899 Other long term (current) drug therapy